=== PATIENT | male | born 1935 | race Asian ===

== ENCOUNTER 2016-08-18 08:29 | Emergency (ER) | payer MEDICARE, BC ==
[~2016-08-18] VITALS: Ht 177.8 cm; Wt 90.7 kg
--- NOTE | 2016-08-18 08:36 | NUR ---
BIBPA FROM [facility] FOR GT REPLACEMENT (PULLED OUT). PATIENT APPEARS IN NO APPARENT DISTRESS, WITH TRACHEOSTOMY, VENT DEPENDENT TOLERATED. NO S/SX OF INFETION ON GT SITE. VSS. MD GOODWIN AT BEDSIDE FOR REPLACEMENT OF GT
--- NOTE | 2016-08-18 08:39 | NUR ---
GT REPLACED BY MD GOODWIN
--- NOTE | 2016-08-18 08:39 | NUR ---
AWAITING FOR XRAY
[2016-08-18] MEDS ORDERED: DIATR MEGLU/DIATRIZOATE SODIUM 120 ML BOTTLE (GASTROGRAPHIN) ONE (08:40)
[2016-08-18] MEDS ORDERED: DIATR MEGLU/DIATRIZOATE SODIUM 30 ML BOTTLE (GASTROGRAPHIN) ONE (08:41)
[2016-08-18 09:18] VITALS: BP 148/88
--- NOTE | 2016-08-18 09:18 | NUR ---
Patient discharged to home in stable condition. Written and verbal after care instructions given. Patient verbalizes understanding of instruction.
== END 2016-08-18 09:20 | disposition home or self-care (01) ==
LOC: ER 08:31
DX: K94.20 Gastrostomy complication, unspecified (principal); I11.0 Hypertensive heart disease with heart failure; I50.9 Heart failure, unspecified; I25.10 Atherosclerotic heart disease of native coronary artery without angina pectoris; I25.2 Old myocardial infarction; I48.91 Unspecified atrial fibrillation; Z95.0 Presence of cardiac pacemaker; Z95.1 Presence of aortocoronary bypass graft; Z98.890 Other specified postprocedural states
CPT/HCPCS: 74000-TC; A4606; A6402; Q9963; Z7610